=== PATIENT | female | born 1995 | race Caucasian/White ===

== ENCOUNTER 2020-01-13 20:27 | Emergency (ER) | payer MEDICAID ==
[~2020-01-13] VITALS: Ht 154.9 cm; Wt 75.0 kg
[2020-01-13] MEDS ORDERED: KETOROLAC 30MG/ML VIAL IM ONE (23:15)
[2020-01-14 00:24] VITALS: BP 122/76
== END 2020-01-14 00:25 | disposition home or self-care (01) ==
LOC: ER 20:27
DX: M54.5 Low back pain (principal)
CPT/HCPCS: 81025; 96372; 99283; J1885